=== PATIENT | female | born 1990 | race Asian ===

== ENCOUNTER 2017-05-16 06:00 | Inpatient (IN) | payer OTHER ==
[2017-05-16] MEDS ORDERED: OLIVE OIL 118 ML BTL MISC PRN (06:27)
[2017-05-16] MEDS ORDERED: LR 1,000 ML IV PRN (06:27)
[2017-05-16] MEDS ORDERED: TERBUTALINE SULFATE 1 MG/ML VIAL IV PRN (06:27)
[2017-05-16] MEDS ORDERED: OXYTOCIN 20 UNIT in LR 1,000 ML IV PRN (06:27)
[2017-05-16] MEDS ORDERED: EPSOM SALT 454 GM TP PRN (06:27)
[2017-05-16] MEDS ORDERED: MISOPROSTOL 200 MCG TAB PR PRN (06:27)
[2017-05-16] MEDS ORDERED: OLIVE OIL 118 ML BTL ONE (06:46)
[2017-05-16] MEDS ORDERED: LIDOCAINE 1% 300 MG/30 ML SDV ONE (06:46)
[2017-05-16] MEDS ORDERED: TERBUTALINE SULFATE 1 MG/ML VIAL ONE (06:46)
[2017-05-16] MEDS ORDERED: AMMONIA AROMATIC 1 EACH AMP IH ONE (06:46)
[2017-05-16] MEDS ORDERED: OXYTOCIN 10 UNIT/ML VIAL ONE (06:47)
[2017-05-16] MEDS ORDERED: MISOPROSTOL 200 MCG TAB ONE (06:47)
[2017-05-16] MEDS ORDERED: OXYTOCIN 30 UNIT in NS 500 ML IV SCH (07:15)
--- NOTE | 2017-05-16 07:19 | OBPROG ---
Labor Progress Note Assessment/Plan: Assessment:cat 1 fhr elevated bp denies PIH labs denies pain no contractions continuous monitoring afebrile exam 4-5/75/-1 Plan:pitocin per protocol arom when able 05/16/17 07:18 Subjective/Intrapartum Course: 05/16/17 07:17 Doing well denies difficulties. Discussed POC. Pitocin per protocol and then arom once labor begins. PAtient and family ok with POC - SVE Dilation (cm): 4, 5 Effacement (%): 75 - Contraction Pattern Assessment Current Contraction Pattern: Irregular - FHR Assessment Gerardo FHR (bpm): 135 - AP Antepartum Course: g3po no medical dfficulties. Pitocin per protocol elective IOL. Advanced dilitation 05/16/17 07:19 - Physical Exam General Appearance: WD/WN, alert, no apparent distress Respiratory: chest non-tender, lungs clear, normal breath sounds Cardiac/Chest: regular rate, rhythm Abdomen: normal bowel sounds Extremities: normal range of motion, Reshma's sign (negative bilateraly) DTR- Lower Extremities: Knee (R): 1+, Knee (L): 1+ (no clonus) Skin: normal color, warm/dry Neuro/Psych: no motor/sensory deficits, alert, normal mood/affect, oriented x 3 ICD10 Worksheet Patient Problems: Problems Problem Status Onset elective iol Acute
[2017-05-16 07:26] LABS: PLATELET COUNT 145 10^3/uL (150-400)
--- NOTE | 2017-05-16 07:35 | GHP ---
[f rep st] HISTORY AND PHYSICAL DATE OF ADMISSION: 05/16/2017 The patient is a 26-year-old 3, para 0 with an EDC of 05/16/2017, which gives her a gestation al age of 40 weeks, who comes in for induction of labor on 05/16/2017, electively. The patient has b een routinely seeing [facility] since 9 weeks and 1 day. Feeling positive movement. Denies leaking, bleeding, and cramping today. No significant history throughout all of pr egnancy. MEDICAL HISTORY: Benign. SURGICAL HISTORY: D and C in 2015. GYNECOLOGICAL HISTORY: IUD, OCPs, last Pap 04/2015, which was within normal limits. SOCIAL HISTORY: Denies tobacco use, drug use. . GYNECOLOGICAL HISTORY: 10 years, menarche began. Interval 21-28 days. Length 4-5 days. Last LMP w as 08/09/2016. PREVIOUS HISTORY: In 07/2015, SAB. In 12/2015, a 9-week MAB with a D and C. Present preg renuka. PHYSICAL ASSESSMENT: GENERAL: Patient is awake, alert, oriented x3. LUNGS: Clear bilaterally. AB DOMEN: Bowel sounds are positive in all 4 quadrants. EXTREMITIES: DTRs are 2+ bilaterally with no clonus. Homans sign is negative bilaterally. PELVIC: Denies contractions. Exam in the office prev iously 4-5, 75, -1, cephalic today by [facility]. LABS: Patient is A positive, antibody negative. RPR is nonreactive. Rubella is immune. Hepatitis is negative. HIV is negative. Pap was within normal limits. Gonorrhea and chlamydia were negative. AFP was negative. 1-hour GTT was within normal limits. Patient is GBS negative. PLAN OF CARE: 1. Pitocin per protocol. 2. AROM with regular contractions and pain. The patient requests minimal intervention. Elevated bl ood pressures today on admit. We will do PIH labs. The patient denies headache, blurry vision, spot s, before eyes, pain over on the right side of chest, and DTRs were within normal limits. /[id number]/MODL
--- NOTE | 2017-05-16 11:28 | OBPROG ---
Labor Progress Note Assessment/Plan: Assessment:cat 1 fhr elevated bp denies PIH symptoms pih labs drawn contractions regular with pitocin arom clear fluid without difficulty exam 5-6/80/0 cephalic continuous monitoring afebrile pitocin per protocol Plan:pitocin per protocol expectant management 05/16/17 07:18 05/16/17 11:25 Subjective/Intrapartum Course: 05/16/17 07:17 Doing well denies difficulties. Discussed POC. Pitocin per protocol and then arom once labor begins. PAtient and family ok with POC 05/16/17 11:25 Doing well denies difficulty. Objective: 05/16/17 06:55 05/16/17 07:00 Patient ABO/Rh A POSITIVE 05/16/17 06:55 Uric Acid 7.1 mg/dL (2.5-6.8) H 05/16/17 07:00 Total Bilirubin 0.5 mg/dL (0.1-1.4) 05/16/17 07:00 Conjugated Bilirubin 0.4 mg/dL (0.0-0.5) 05/16/17 07:00 Unconjugated Bilirubin 0.1 mg/dL (0.0-1.1) 05/16/17 07:00 AST 19 IU/L (14-46) 05/16/17 07:00 ALT 30 IU/L (9-52) 05/16/17 07:00 Lactate Dehydrogenase 451 IU/L (313-618) 05/16/17 07:00 - SVE Dilation (cm): 5, 6 Effacement (%): 80 Station: -1 Membranes: AROM Amniotic Fluid Color: Clear - Contraction Pattern Assessment Current Contraction Pattern: Irregular - FHR Assessment Gerardo FHR (bpm): 135 FHR Pattern Variability: Moderate FHR Category: 1 - Procedures Non-surgical Procedures: Amniotomy - AP Antepartum Course: g3po no medical dfficulties. Pitocin per protocol elective IOL. Advanced dilitation 05/16/17 07:19 Oxytocin Orders Assessment - Pre-Induction/Augmentation Assessment Gestational Age: 40 week(s) and 0 day(s) ICD10 Worksheet Patient Problems: Problems Problem Status Onset elective iol Acute
--- NOTE | 2017-05-16 12:30 | OBPROG ---
Labor Progress Note Assessment/Plan: Assessment:cat 1 fhr elevated bp denies PIH symptoms pih labs drawn contractions regular with pitocin arom clear fluid without difficulty exam 10/100/+2 cephalic continuous monitoring afebrile pitocin per protocol off pushing begun Plan:expectant management pushing 05/16/17 07:18 05/16/17 11:25 05/16/17 12:29 Subjective/Intrapartum Course: 05/16/17 07:17 Doing well denies difficulties. Discussed POC. Pitocin per protocol and then arom once labor begins. PAtient and family ok with POC 05/16/17 11:25 Doing well denies difficulty. Objective: 05/16/17 06:55 05/16/17 07:00 Patient ABO/Rh A POSITIVE 05/16/17 06:55 Uric Acid 7.1 mg/dL (2.5-6.8) H 05/16/17 07:00 Total Bilirubin 0.5 mg/dL (0.1-1.4) 05/16/17 07:00 Conjugated Bilirubin 0.4 mg/dL (0.0-0.5) 05/16/17 07:00 Unconjugated Bilirubin 0.1 mg/dL (0.0-1.1) 05/16/17 07:00 AST 19 IU/L (14-46) 05/16/17 07:00 ALT 30 IU/L (9-52) 05/16/17 07:00 Lactate Dehydrogenase 451 IU/L (313-618) 05/16/17 07:00 - SVE Dilation (cm): 10 Effacement (%): 100 Station: +2 Membranes: AROM Amniotic Fluid Color: Clear - Contraction Pattern Assessment Current Contraction Pattern: Irregular - Procedures Non-surgical Procedures: Amniotomy - AP Antepartum Course: g3po no medical dfficulties. Pitocin per protocol elective IOL. Advanced dilitation 05/16/17 07:19 Oxytocin Orders Assessment - Pre-Induction/Augmentation Assessment Gestational Age: 40 week(s) and 0 day(s) ICD10 Worksheet Patient Problems: Problems Problem Status Onset elective iol Acute
[2017-05-16] MEDS ORDERED: HYDROCORTISONE 0.5% CREAM TP PRN (13:54)
[2017-05-16] MEDS ORDERED: HYDROCODONE/APAP 5/325 TAB PO PRN (13:54)
[2017-05-16] MEDS ORDERED: ACETAMINOPHEN 325 MG TAB PO PRN (13:54)
[2017-05-16] MEDS ORDERED: SIMETHICONE 80 MG TAB CHEW PO PRN (13:54)
[2017-05-16] MEDS ORDERED: DOCUSATE SODIUM 100 MG CAP PO PRN (13:54)
--- NOTE | 2017-05-16 13:58 | OBDEL ---
Info Type: Vaginal Presentation at Delivery: Vertex L&D Analgesia/Anesthesia Type: Local GBS+: No Intrapartum Medications: Generic Name Dose Route Start Last Admin Trade Name Freq PRN Reason Stop Dose Admin Lactated Ringer's 1,000 mls @ 0 mls/hr 05/16/17 06:27 05/16/17 08:05 Lr IV 05/17/17 06:26 1,000 mls PRN PRN Administration SEE PROTOCOL CONDITIONS Protocol Per Protocol Oxytocin 30 unit/ Sodium 503 mls @ 0 mls/hr 05/16/17 07:15 05/16/17 08:05 Chloride IV 11/12/17 07:14 503 mls CONT BISI Administration Protocol Per Protocol Discontinued Medications Generic Name Dose Route Start Last Admin Trade Name Freq PRN Reason Stop Dose Admin Misoprostol 800 - 1,000 mcg 05/16/17 06:27 05/16/17 13:[address] 800 mcg ONCE PRN Administration Vaginal Atony/Bleeding - Hospital Course Intrapartum: 05/16/17 07:17 Doing well denies difficulties. Discussed POC. Pitocin per protocol and then arom once labor begins. PAtient and family ok with POC 05/16/17 11:25 Doing well denies difficulty. Indications for Delivery: Elective Vaginal Delivery - Delivery Provider Delivery Physician/CNM: Danay Leon Proctoring Provider: Ye Gonzales - Labor and Delivery Onset of Contractions Date: 05/16/17 Onset of Contractions Time: 08:11 Onset of Contractions Type: Induced Rupture of Membranes Date: 05/16/17 Rupture of Membranes Time: 11:07 Rupture of Membranes Type: Artificial Amniotic Fluid Color: Clear Dilation Complete Date: 05/16/17 Dilation Complete Time: 12:26 Placenta Delivery Date: 05/16/17 Placenta Delivery Time: 13:15 Total Hours of Labor: 5 Non-surgical Procedures: Amniotomy Laceration: 2nd Degree, Other (Specify) (right and left labia repaired) Repair: 2-0, 3-0, 4-0, Vicryl Vaginal Needle Count Correct: Yes Vaginal Sweep Performed: No EBL: 400 Delivery Events: None Delivery Comment: compound presentation delivery right hand. Cytotec 800mcg per rectum after delivery - Medications Labor Augmentation/Induction Methods Used: Pitocin [place] Data BRANDI: 05/16/17 Gestational Age: 40 week(s) and 0 day(s) Gerardo Delivery Date: 05/16/17 Delivery Time: 13:07 Sex of Infant: Female Score (1 Min): 8 Score (5 Min): 9 ICD10 Worksheet Patient Problems: Problems Problem Status Onset elective iol Acute
[2017-05-16] MEDS: IBUPROFEN 600 MG TAB PO PRN ×2 (13:59→20:43)
[2017-05-16] MEDS ORDERED: MISOPROSTOL 200 MCG TAB PR SCH (14:00)
[2017-05-16] MEDS ORDERED: MISOPROSTOL 200 MCG TAB PR ONE (14:01)
[2017-05-16] MEDS ORDERED: ACETAMINOPHEN 500 MG TAB PO ONE (16:16)
[2017-05-17] MEDS: IBUPROFEN 600 MG TAB PO PRN ×4 (03:20→22:25)
--- NOTE | 2017-05-17 09:43 | OBPP ---
Progress Note Assessment/Plan: Assessment: 26 y/o s/p at 40 weeks EGA - elective IOL Uncomplicated Plan: Routine PP care Pain medication as needed Continue cold packs on perineum support as needed Plan DC home tomorrow 05/17/17 09:39 05/17/17 09:44 Subjective/ Course: 05/17/17 09:43 Patient is doing well this morning. Reports lochia to be light, pain controlled with oral medication, tolerating regular diet and voiding. Using cold pack and Dermoplast for perineal pain/swelling. is going well. 05/17/17 09:44 Objective: 05/16/17 06:55 05/16/17 07:00 Patient ABO/Rh A POSITIVE 05/16/17 06:55 Uric Acid 7.1 mg/dL (2.5-6.8) H 05/16/17 07:00 Total Bilirubin 0.5 mg/dL (0.1-1.4) 05/16/17 07:00 Conjugated Bilirubin 0.4 mg/dL (0.0-0.5) 05/16/17 07:00 Unconjugated Bilirubin 0.1 mg/dL (0.0-1.1) 05/16/17 07:00 AST 19 IU/L (14-46) 05/16/17 07:00 ALT 30 IU/L (9-52) 05/16/17 07:00 Lactate Dehydrogenase 451 IU/L (313-618) 05/16/17 07:00 Temp Pulse Resp BP Pulse Ox 36.2 C 68 14 112/68 96 05/17/17 08:00 05/17/17 08:00 05/17/17 08:00 05/17/17 08:00 05/17/17 08:00 VSS Respirations unlabored Extremities with minimal edema Lochia scant Fundus firm Perineum healing well -well approximated Nipples intact Uterine Position/Fundal Height: Umbilicus -1 Uterine Tone: Firm Physical Exam - Physical Exam EENT: PERRL/EOMI Neck: full range of motion, supple Respiratory: normal breath sounds Cardiac/Chest: regular rate, rhythm Extremities: normal range of motion Skin: normal color, warm/dry Neuro/Psych: alert, normal mood/affect, oriented x 3
[2017-05-17 20:04] VITALS: RESP 18
[2017-05-18] MEDS: IBUPROFEN 600 MG TAB PO PRN ×3 (05:27→18:57)
--- NOTE | 2017-05-18 09:41 | OBGCSDC ---
General Delivery Information - General Info : 3 Para: 1 Abortions: 2 Type: Vaginal L&D Analgesia/Anesthesia Type: Local Admission Date: 05/16/17 Labs: Patient ABO/Rh A POSITIVE 05/16/17 06:55 Hct 38.0 % (38.0-47.0) 05/16/17 06:55 - Hospital Course Antepartum: g3po no medical dfficulties. Pitocin per protocol elective IOL. Advanced dilitation 05/16/17 07:19 Intrapartum: 05/16/17 07:17 Doing well denies difficulties. Discussed POC. Pitocin per protocol and then arom once labor begins. PAtient and family ok with POC 05/16/17 11:25 Doing well denies difficulty. : 05/17/17 09:43 Patient is doing well this morning. Reports lochia to be light, pain controlled with oral medication, tolerating regular diet and voiding. Using cold pack and Dermoplast for perineal pain/swelling. is going well. 05/17/17 09:44 05/18/17 10:02 S) Pt doing well, reports min pain and bleeding. she is ambulating and voiding without difficulty. She is . She desires discharge home today. O) VSS, afebrile constitutional: WNWF, A&Ox3 HEENT: normocephalic, atraumatic, supple Heart: RRR, No murmur Chest: CTA-B Abdomen: Soft, nontender Uterus: Firm at U-2 Lochia: Minimal rubra Perineum: Intact, healing well Extremities: Trace edema, and negative Reshma's sign Neuro: Grossly normal A) 26-year-old S/P PPD#2 P) Discharge home today Continue Pelvic rest [id number] Discussed danger signs (infection, preeclampsia, depression, heavy bleeding, etc ) RTO in 2/4/6 weeks 05/18/17 10:03 Vaginal - Delivery Provider Delivery Physician/CNM: Danay Leon - Diagnosis Labor: Induced Rupture of Membranes Type: Artificial Amniotic Fluid Color: Clear Laceration: 2nd Degree, Other (Specify) (right and left labia repaired) Repair: 2-0, 3-0, 4-0, Vicryl Delivery Events: None - Procedures Non-surgical Procedures: Amniotomy - Delivery Non-surgical Procedures: Amniotomy EBL: 400 [place] Data BRANDI: 05/16/17 Gestational Age: 40 week(s) and 2 day(s) Gerardo Delivery Date: 05/16/17 Delivery Time: 13:07 Sex of : Female Weight (gm): 2972 kg Score (1 Min): 9 Score (5 Min): 9 Discharge Information - Discharge Information Prescriptions: Ibuprofen [Motrin (*)] 600 mg PO Q6HRS PRN #30 tab PRN Reason: post , inflammation Condition: Good Instruction/Follow Up: Two Weeks, Four Weeks, Six Weeks
[2017-05-18 12:35] LABS: PLATELET COUNT 164 10^3/uL (150-400)
--- NOTE | 2017-05-18 14:12 | SOAPPROG ---
SOAP Progress Note Assessment/Plan: Assessment: [id number] s/p PPD#2 elevated PIH labs mild range BPs Plan: discussed with pt that labs are elevated and will need to hold d/c at this time serial BPs, q 1 hour x 4 hours urine P:C repeat PIH labs at 1700 hold d/c at this time 05/18/17 14:10 05/18/17 14:11 Subjective: pt doing well, she denies any headaches, visual changes, epigastric pain. She denies any pain, heavy bleeding. Objective: Vital Signs Temp Pulse Resp BP Pulse Ox 36.7 C 90 18 147/93 H 97 05/18/17 11:30 05/18/17 11:30 05/18/17 11:30 05/18/17 11:55 05/18/17 11:30 Laboratory Results 05/18/17 12:22 05/18/17 12:08 05/17/17 05/18/17 05/19/17 05:59 05:59 05:59 Output Total 700 Balance -700 - Time Spent With Patient Time Spent With Patient: 30 ICD10 Worksheet Patient Problems: Problems Problem Status Onset elective iol Acute
[2017-05-18 16:23] VITALS: TEMP 98.6; O2SAT 96
[2017-05-18 17:33] LABS: PLATELET COUNT 166 10^3/uL (150-400)
[2017-05-18 18:14] VITALS: BP 150/104; PULSE 80
== END 2017-05-18 19:11 | disposition home or self-care (01) | DRG 775 ==
LOC: FLD 06:05 → FOB 15:50
PROVIDERS: ADMIT Hospitalist; ATTEND Hospitalist
DX: O70.1 Second degree perineal laceration during delivery (principal); Z37.0 Single live birth; Z3A.40 40 weeks gestation of pregnancy
CPT/HCPCS: J2590; J3105